=== PATIENT | male | born 1980 | race Caucasian/White ===

== ENCOUNTER 2019-09-21 00:40 | Observation (INO) | payer OTHER ==
[2019-09-21] MEDS ORDERED: BENADRYL 50 MG/ML IV ONE (01:13)
[2019-09-21] MEDS ORDERED: Zofran 4 MG/2 ML VIAL IV ONE (01:13)
[2019-09-21] MEDS ORDERED: MORPHINE SULFATE 4 MG INJ IV ONE (01:13)
[2019-09-21] MEDS ORDERED: Sodium Chloride 0.9% 1000 ML 1,000 ML IV STA ×2 (01:13→02:51)
[2019-09-21] MEDS ORDERED: Merrem 1 GM 1 G in Sodium Chloride 100ML MINI-BAG PLUS 100 ML IV STA (01:15)
--- NOTE | 2019-09-21 01:17 | ERPHSYRPT ---
- History of Present Illness Time Seen by Provider: 09/21/19 01:16 Historian: patient, family Exam Limitations: no limitations Patient Subjective Stated Complaint: pt c/o abd pain Triage Nursing Assessment: pt c/o abd pain mostly on rt side, does not radiate to back. Bowel sounds x4 quad, tender on palpation to rt side. LBM 09/20/19, last ate at 1700 but just a few bites. Pt denies any n,v, indigestion. Physician History: pt had gradual onset RLQ pain through the day with loss of appetite - no vomiting. has RLQ tenderness and rebound . no prior abd surgeries. Activities at Onset: none Quality: sharpness Abdominal Pain Onset Location: RLQ Pain Radiation: no radiation Severity of Pain-Max: moderate Severity of Pain-Current: moderate Modifying Factors: Improves With: movement Associated Symptoms: loss of appetite, nausea Previous symptoms: no prior history Allergies/Adverse Reactions: bee pollen Adverse Reaction (Severe, Verified 09/21/19 01:00) Anaphylactic Reaction Home Medications: No Reportable Medications [No Reported Medications] 09/21/19 [History] Hx Tetanus, Diphtheria Vaccination/Date Given: Yes Hx Influenza Vaccination/Date Given: No Hx Pneumococcal Vaccination/Date Given: No Immunizations Up to Date: Yes Travel Risk - International Travel Have you traveled outside of the country in past 3 weeks: No - Coronavirus Screening Are you exhibiting any of the following symptoms?: No Close contact with a COVID-19 positive Pt in past 14-21 Days: No - Review of Systems Constitutional: No Fever, No Chills Eyes: No Symptoms Ears, Nose, & Throat: No Symptoms Respiratory: No Cough, No Dyspnea Cardiac: No Chest Pain, No Edema, No Syncope Abdominal/Gastrointestinal: Abdominal Pain, Nausea, No Vomiting, No Diarrhea Genitourinary Symptoms: No Dysuria Musculoskeletal: No Back Pain, No Neck Pain Skin: No Rash Neurological: No Dizziness, No Focal Weakness, No Sensory Changes Psychological: No Symptoms Endocrine: No Symptoms All Other Systems: Reviewed and Negative - Past Medical History Pertinent Past Medical History: Yes Neurological History: No Pertinent History ENT History: No Pertinent History Cardiac History: No Pertinent History Respiratory History: No Pertinent History Endocrine Medical History: No Pertinent History Musculoskeletal History: No Pertinent History, Other GI Medical History: No Pertinent History History: No Pertinent History Psycho-Social History: No Pertinent History Male Reproductive Disorders: No Pertinent History - Past Surgical History Past Surgical History: Yes Neuro Surgical History: No Pertinent History Cardiac: No Pertinent History Respiratory: No Pertinent History Gastrointestinal: No Pertinent History Genitourinary: No Pertinent History Musculoskeletal: Orthopedic Surgery Male Surgical History: No Pertinent History Other Surgical History: rt shoulder, multiple ear surgeries, jaw surgery - Social History Smoking Status: Current every day smoker How long have you smoked: 20 yrs Exposure to second hand smoke: Yes Drug Use: none Patient Lives Alone: No - Nursing Vital Signs Nursing Vital Signs: Initial Vital Signs Temperature 97.6 F 09/21/19 00:51 Pulse Rate 92 H 09/21/19 00:51 Respiratory Rate 18 09/21/19 00:51 Blood Pressure 130/85 09/21/19 00:51 O2 Sat by Pulse Oximetry 100 09/21/19 00:51 Pain Scale Pain Intensity 4 - Physical Exam General Appearance: no apparent distress, alert Eye Exam: PERRL/EOMI, eyes nml inspection Ears, Nose, Throat Exam: normal ENT inspection, pharynx normal, moist mucous membranes Neck Exam: normal inspection, non-tender, supple, full range of motion Respiratory Exam: normal breath sounds, lungs clear, No respiratory distress Cardiovascular Exam: regular rate/rhythm, normal heart sounds Gastrointestinal/Abdomen Exam: soft, tenderness (RLQ), rebound, No mass Rectal Exam: deferred Back Exam: normal inspection, normal range of motion, No CVA tenderness, No vertebral tenderness Extremity Exam: normal inspection, normal range of motion, pelvis stable Neurologic Exam: alert, oriented x 3, cooperative, normal mood/affect, nml cerebellar function, sensation nml, No motor deficits Skin Exam: normal color, warm, dry SpO2: 100 - Course Nursing assessment & vital signs reviewed: Yes EKG Interpreted by Me: Sinus Rhythm, NORMAL AXIS, NORMAL INTERVALS, NORMAL QRS - CT Exams Abdomen/Pelvis CT Interpretation: Tele-radiologist Report, appendicitis, Other (hiatal hernia incidental) Ordered Tests: Active Orders 24 hr Category Date Time Status EKG-ER Only STAT Care 09/21/19 01:13 Active IV Insertion STAT Care 09/21/19 01:13 Active ABDOMEN AND PELVIS W/0 CONTRAS [CT] Stat Exams 09/21/19 01:13 Taken CBC W DIFF Stat Lab 09/21/19 01:28 Completed CMP Stat Lab 09/21/19 01:28 Completed LIPASE Stat Lab 09/21/19 01:28 Completed Lactic Acid Stat Lab 09/21/19 01:13 Completed UA W/RFX UR CULTURE Stat Lab 09/21/19 01:13 Completed Medication Summary Generic Name Dose Route Start Last Admin Trade Name Andrew PRN Reason Stop Dose Admin Sodium Chloride 1,000 mls @ 999 mls/hr 09/21/19 02:51 09/21/19 02:54 Sodium Chloride 0.9% 1000 Ml IV 09/21/19 03:51 999 mls/hr .Q1H1M STA Administration Discontinued Medications Generic Name Dose Route Start Last Admin Trade Name Andrew PRN Reason Stop Dose Admin Diphenhydramine HCl 25 mg 09/21/19 01:13 09/21/19 01:52 Benadryl 50 Mg/Ml IV 09/21/19 01:14 25 mg STAT ONE Administration Diphenhydramine HCl Confirm 09/21/19 01:35 Benadryl 50 Mg/Ml Administered 09/21/19 01:36 Dose 50 mg .ROUTE .STK-MED ONE Sodium Chloride 1,000 mls @ 999 mls/hr 09/21/19 01:13 09/21/19 01:47 Sodium Chloride 0.9% 1000 Ml IV 09/21/19 02:13 999 mls/hr .Q1H1M STA Administration Meropenem 1 g/ Sodium Chloride 100 mls @ 200 mls/hr 09/21/19 01:15 09/21/19 01:47 IV 09/21/19 01:44 200 mls/hr STAT STA 200 mls/hr Administration Sodium Chloride Confirm 09/21/19 01:35 Sodium Chloride 100ml Mini-Bag Plus Administered 09/21/19 01:36 Dose 100 mls @ ud IV .STK-MED ONE Sodium Chloride Confirm 09/21/19 01:36 Sodium Chloride 0.9% 1000 Ml Administered 09/21/19 01:37 Dose 1,000 mls @ ud .ROUTE .STK-MED ONE Sodium Chloride Confirm 09/21/19 02:52 Sodium Chloride 0.9% 1000 Ml Administered 09/21/19 02:53 Dose 1,000 mls @ ud .ROUTE .STK-MED ONE Meropenem Confirm 09/21/19 01:35 Merrem 1 Gm Administered 09/21/19 01:36 Dose 1 g IV .STK-MED ONE Morphine Sulfate 4 mg 09/21/19 01:13 09/21/19 01:51 Morphine Sulfate 4 Mg Inj IV 09/21/19 01:14 4 mg STAT ONE Administration Morphine Sulfate Confirm 09/21/19 01:35 Morphine Sulfate 4 Mg Inj Administered 09/21/19 01:36 Dose 4 mg .ROUTE .STK-MED ONE Ondansetron HCl 4 mg 09/21/19 01:13 09/21/19 01:52 Zofran 4 Mg/2 Ml Vial IV 09/21/19 01:14 4 mg STAT ONE Administration Ondansetron HCl Confirm 09/21/19 01:34 Zofran 4 Mg/2 Ml Vial Administered 09/21/19 01:35 Dose 4 mg .ROUTE .STK-MED ONE Lab/Rad Data: Laboratory Result Diagrams 09/21/19 01:28 09/21/19 01:28 Laboratory Results 09/21/19 09/21/19 09/21/19 Range/Units 01:28 01:28 01:13 WBC 10.9 H (4.0-10.5) K/mm3 RBC 4.69 (4.1-5.6) M/mm3 Hgb 14.8 (12.5-18.0) gm/dl Hct 42.4 (42-50) % MCV 90.4 (78-100) fl MCH 31.6 (26-32) pg MCHC 34.9 (32-36) g/dl RDW 12.6 (11.5-14.0) % Plt Count 250 (150-450) K/mm3 MPV 9.5 (7.5-11.0) fl Gran % 70.5 H (36.0-66.0) % Eos # (Auto) 0.25 (0-0.5) Absolute Lymphs (auto) 2.27 (1.0-4.6) Absolute Monos (auto) 0.69 (0.0-1.3) Lymphocytes % 20.8 L (24.0-44.0) % Monocytes % 6.3 (0.0-12.0) % Eosinophils % 2.3 (0.00-5.0) % Basophils % 0.1 (0.0-0.4) % Absolute Granulocytes 7.67 H (1.4-6.9) Basophils # 0.01 (0-0.4) Sodium 136 L (137-145) mmol/L Potassium 4.4 (3.5-5.1) mmol/L Chloride 105 (98-107) mmol/L Carbon Dioxide 25 (22-30) mmol/L Anion Gap 9.7 (5-15) MEQ/L BUN 14 (9-20) mg/dL Creatinine 0.98 (0.66-1.25) mg/dL Estimated GFR > 60.0 ML/MIN Glucose 111 H (74-106) mg/dL Lactic Acid (0.4-2.0) Calcium 10.0 (8.4-10.2) mg/dL Total Bilirubin 0.60 (0.2-1.3) mg/dL AST 31 (17-59) U/L ALT 38 (0-50) U/L Alkaline Phosphatase 89 (38-126) U/L Serum Total Protein 6.9 (6.3-8.2) g/dL Albumin 4.0 (3.5-5.0) g/dL Lipase 44 (23-300) U/L Urine Color YELLOW (YELLOW) Urine Appearance CLEAR (CLEAR) Urine pH 5.0 (5-6) Ur Specific [place] 1.024 (1.005-1.025) Urine Protein NEGATIVE (Negative) Urine Ketones NEGATIVE (NEGATIVE) Urine Blood NEGATIVE (0-5) Jomar/ul Urine Nitrite NEGATIVE (NEGATIVE) Urine Bilirubin NEGATIVE (NEGATIVE) Urine Urobilinogen NEGATIVE (0-1) mg/dL Ur Leukocyte Esterase NEGATIVE (NEGATIVE) Urine WBC (Auto) NONE (0-5) /HPF Urine RBC (Auto) NONE (0-2) /HPF U Epithel Cells (Auto) NONE (FEW) /HPF Urine Bacteria (Auto) NONE (NEGATIVE) /HPF Urine Mucus (Auto) SLIGHT (NEGATIVE) /HPF Urine Culture Reflexed NO (NO) Urine Glucose NEGATIVE (NEGATIVE) mg/dL 09/21/19 Range/Units 01:13 WBC (4.0-10.5) K/mm3 RBC (4.1-5.6) M/mm3 Hgb (12.5-18.0) gm/dl Hct (42-50) % MCV (78-100) fl MCH (26-32) pg MCHC (32-36) g/dl RDW (11.5-14.0) % Plt Count (150-450) K/mm3 MPV (7.5-11.0) fl Gran % (36.0-66.0) % Eos # (Auto) (0-0.5) Absolute Lymphs (auto) (1.0-4.6) Absolute Monos (auto) (0.0-1.3) Lymphocytes % (24.0-44.0) % Monocytes % (0.0-12.0) % Eosinophils % (0.00-5.0) % Basophils % (0.0-0.4) % Absolute Granulocytes (1.4-6.9) Basophils # (0-0.4) Sodium (137-145) mmol/L Potassium (3.5-5.1) mmol/L Chloride (98-107) mmol/L Carbon Dioxide (22-30) mmol/L Anion Gap (5-15) MEQ/L BUN (9-20) mg/dL Creatinine (0.66-1.25) mg/dL Estimated GFR ML/MIN Glucose (74-106) mg/dL Lactic Acid 1.2 (0.4-2.0) Calcium (8.4-10.2) mg/dL Total Bilirubin (0.2-1.3) mg/dL AST (17-59) U/L ALT (0-50) U/L Alkaline Phosphatase (38-126) U/L Serum Total Protein (6.3-8.2) g/dL Albumin (3.5-5.0) g/dL Lipase (23-300) U/L Urine Color (YELLOW) Urine Appearance (CLEAR) Urine pH (5-6) Ur Specific [place] (1.005-1.025) Urine Protein (Negative) Urine Ketones (NEGATIVE) Urine Blood (0-5) Jomar/ul Urine Nitrite (NEGATIVE) Urine Bilirubin (NEGATIVE) Urine Urobilinogen (0-1) mg/dL Ur Leukocyte Esterase (NEGATIVE) Urine WBC (Auto) (0-5) /HPF Urine RBC (Auto) (0-2) /HPF U Epithel Cells (Auto) (FEW) /HPF Urine Bacteria (Auto) (NEGATIVE) /HPF Urine Mucus (Auto) (NEGATIVE) /HPF Urine Culture Reflexed (NO) Urine Glucose (NEGATIVE) mg/dL - Progress Progress: unchanged, re-examined Progress Note: 09/21/19 03:[address] Jose Armando Moyer automation and controls manager and will admit for Appe in am and continue AB and NPO and IVF. Discussed with Dr.: Other (Dr. Jose Armando Moyer) Will see patient in: hospital (full admit) Counseled pt/family regarding: lab results, diagnosis, need for follow-up, rad results - Departure Departure Disposition: In-patient Admission Clinical Impression: Appendicitis Condition: Good Critical Care Time: No Referrals: HOSPITAL,'S [Primary Care Provider] -
[2019-09-21 01:30] LABS: Absolute Neutrophil Ct (ANC) 7.67 (1.4-6.9); BASOPHIL % 0.1 % (0.0-0.4); Basophil (Absolute #) 0.01 (0-0.4); Eosinophil % 2.3 % (0.00-5.0); Eosinophil (Absolute #) 0.25 (0-0.5); Hematocrit 42.4 % (42-50); Hemoglobin 14.8 gm/dl (12.5-18.0); Lymphocyte (Absolute #) 2.27 (1.0-4.6); Lymphocytes % 20.8 % (24.0-44.0); Mean Cell Volume 90.4 fl (78-100); Mean Corpuscular Hemoglobin 31.6 pg (26-32); Mean Corpuscular Hgb Concent. 34.9 g/dl (32-36); Mean Platelet Volume 9.5 fl (7.5-11.0); Monocyte (Absolute #) 0.69 (0.0-1.3); Monocytes % 6.3 % (0.0-12.0); Neutrophil % 70.5 % (36.0-66.0); Platelet Count 250 K/mm3 (150-450); Red Blood Count 4.69 M/mm3 (4.1-5.6); Red Cell Distribution Width 12.6 % (11.5-14.0); White Blood Count 10.9 K/mm3 (4.0-10.5)
[2019-09-21] MEDS ORDERED: Zofran 4 MG/2 ML VIAL ONE (01:34)
[2019-09-21] MEDS ORDERED: MORPHINE SULFATE 4 MG INJ ONE ×2 (01:35→03:56)
[2019-09-21] MEDS ORDERED: BENADRYL 50 MG/ML ONE (01:35)
[2019-09-21] MEDS ORDERED: Merrem 1 GM IV ONE (01:35)
[2019-09-21] MEDS ORDERED: Sodium Chloride 100ML MINI-BAG PLUS 100 ML IV ONE (01:35)
[2019-09-21] MEDS ORDERED: Sodium Chloride 0.9% 1000 ML 1,000 ML ONE ×2 (01:36→02:52)
[2019-09-21 01:44] LABS: ALKALINE PHOSPHATASE 89 U/L (38-126); ANION GAP 9.7 MEQ/L (5-15); BLOOD UREA NITROGEN 14 mg/dL (9-20); CHLORIDE 105 mmol/L (98-107); Carbon Dioxide 25 mmol/L (22-30); Creatinine 1 0.98 mg/dL (0.66-1.25); Glucose 111 mg/dL (74-106); LIPASE 44 U/L (23-300); Potassium 4.4 mmol/L (3.5-5.1); SGOT/AST 31 U/L (17-59); SGPT/ALT 38 U/L (0-50); SODIUM 136 mmol/L (137-145); Total Protein 6.9 g/dL (6.3-8.2)
[2019-09-21 02:04] LABS: Appearance CLEAR (CLEAR); Bilirubin NEGATIVE (NEGATIVE); Blood NEGATIVE Ery/ul (0-5); Glucose NEGATIVE (NEGATIVE); Ketones NEGATIVE (NEGATIVE); Leukocyte Esterase NEGATIVE (NEGATIVE); Mucus SLIGHT /HPF (NEGATIVE); Nitrite NEGATIVE (NEGATIVE); Protein,Urine Dip NEGATIVE (Negative); Specific Gravity 1.024 (1.005-1.025); Urobilinogen NEGATIVE mg/dL (0-1)
[2019-09-21 03:25] LABS: INR 1.19 (0.8-3.0); PROTIME 13.5 SECONDS (8.83-12.87)
[2019-09-21 03:28] LABS: PTT 32.5 SECONDS (24.1-36.1)
[2019-09-21] MEDS ORDERED: HUMULIN R SQ PRN (03:49)
[2019-09-21] MEDS ORDERED: DILAUDID 2 MG INJECTION IV PRN (03:49)
[2019-09-21] MEDS ORDERED: MORPHINE SULFATE 4 MG INJ IV PRN ×2 (03:49→03:59)
[2019-09-21] MEDS ORDERED: Zofran 4 MG/2 ML VIAL IV PRN (03:49)
[2019-09-21] MEDS ORDERED: Sodium Chloride 0.9% 1000 ML 1,000 ML IV SCH (03:49)
[2019-09-21 04:36] LABS: ABO TYPING O; Antibody Screen NEGATIVE (NEGATIVE); RH TYPING POSITIVE
[2019-09-21] MEDS ORDERED: Merrem 1 GM 1 G in Sodium Chloride 100ML MINI-BAG PLUS 100 ML IV SCH (06:00)
[2019-09-21] MEDS ORDERED: Lactated Ringers 1,000 ML IV SCH (06:30)
--- NOTE | 2019-09-21 06:54 | XRAY ---
Indication: Right lower quadrant pain and elevated WBC. Multiple contiguous axial images obtained through the abdomen and pelvis without contrast as ordered. Comparison: None Lung bases demonstrates minimal bibasilar dependent atelectasis. Heart is not enlarged. Noncontrasted stomach and bowel loops appear nonobstructed. Appendix mildly prominent up to 9 mm diameter with minimal periappendiceal stranding favoring acute appendicitis. Tiny 2 mm distal appendicolith and 6 mm base appendicolith. No free fluid/air. Splenomegaly measuring 13.1 cm. Remaining liver, gallbladder, pancreas, spleen, adrenal glands, kidneys, ureters, bladder, and aorta appear unremarkable for noncontrast exam. Osseous structures intact. Impression: 1. CT findings favoring acute appendicitis with appendicoliths. 2. Incidental splenomegaly. Comment: Preliminary interpretation was made by [facility]. No critical discrepancy.
[2019-09-21] MEDS ORDERED: MEFOXIN 2 GM PREMIX** 2 GM/50 ML ML IV SCH (08:00)
[2019-09-21] MEDS ORDERED: Zemuron 100 MG/10 ML ONE (08:05)
[2019-09-21] MEDS ORDERED: SUBLIMAZE 250 MCG/5 ML ONE (08:05)
[2019-09-21] MEDS ORDERED: DIPRIVAN 200 MG/20 ML IV ONE (08:05)
[2019-09-21] MEDS ORDERED: Quelicin Fliptop 200 MG/10 ML ONE (08:05)
[2019-09-21] MEDS ORDERED: Versed 2 MG/2 ML Injection ONE (08:05)
[2019-09-21] MEDS ORDERED: Sensorcaine 0.25% 10 ML ONE ×2 (08:47→09:53)
[2019-09-21] MEDS ORDERED: PHENYLEPHRINE HCL ONE (09:00)
[2019-09-21] MEDS ORDERED: BRIDION 200MG/2ML IV ONE (09:15)
[2019-09-21] MEDS ORDERED: Pepcid 20 MG VIAL IV SCH (10:00)
[2019-09-21] MEDS ORDERED: TYLENOL 325 MG PO PRN (11:01)
[2019-09-21] MEDS ORDERED: Zofran 4 MG/2 ML VIAL IVIM PRN (11:15)
[2019-09-21] MEDS: Sodium Chloride 0.9% 1000 ML 1,000 ML IV SCH ×2 (11:15→11:31)
[2019-09-21] MEDS: NORCO 5/325 MG PO PRN ×2 (12:42→16:58)
[2019-09-21 12:49] LABS: Appearance CLEAR (CLEAR); Bilirubin NEGATIVE (NEGATIVE); Blood NEGATIVE Ery/ul (0-5); Glucose NEGATIVE (NEGATIVE); Ketones NEGATIVE (NEGATIVE); Leukocyte Esterase NEGATIVE (NEGATIVE); Mucus SLIGHT /HPF (NEGATIVE); Nitrite NEGATIVE (NEGATIVE); Protein,Urine Dip NEGATIVE (Negative); Specific Gravity 1.015 (1.005-1.025); Urobilinogen NEGATIVE mg/dL (0-1)
[2019-09-21 12:56] LABS: Bacteria NONE SEEN /HPF (NEGATIVE)
[2019-09-21 17:19] VITALS: BP 111/70; PULSE 73; O2SAT 94
--- NOTE | 2019-09-22 08:34 | HP ---
CHIEF COMPLAINT: Abdominal pain. HISTORY OF PRESENT ILLNESS: The patient is a 39 year old male who presents to the emergency department with around 12 hours of abdominal pain. It is sharp, severe, worse in the right lower quadrant. The emergency department evaluation showed mild leukocytosis, normal vitals, tenderness in the right lower quadrant and CT scan confirming acute appendicitis with appendicolith. PAST MEDICAL HISTORY: No chronic medical conditions. PAST SURGICAL HISTORY: Multiple right shoulder procedures, multiple ear and maxillofacial surgery. MEDICATIONS: None. ALLERGIES: NKDA. BEE POLLEN. SOCIAL HISTORY: Active smoker, not a daily drinker. FAMILY HISTORY: No inflammatory bowel disease or abdominal cancer. PHYSICAL EXAMINATION: HEENT: Sclera nonicteric. NECK: Symmetric. No mass. LUNGS: Nonlabored respirations. HEART: Regular rate and rhythm. ABDOMEN: Nondistended, tender in the right lower quadrant with localized rebound and guarding. EXTREMITIES: No edema. Moving all extremities. NEUROLOGIC: Appropriate mood and affect. GCS with healing. LAB DATA AND TESTS: White count mildly elevated. CBC and BMP reviewed. CT scan showed appendix inflammation with appendicolith. ASSESSMENT AND PLAN: The patient is a 39 year old male with acute appendicitis. He had been admitted to the hospital, got IV antibiotic, IV fluid, pain control and now going to operating room for appendectomy.
--- NOTE | 2019-09-24 08:59 | OP ---
NOTE: This dictation is being dictated in retrospect. Apparently there was a problem with my initial attempt to dictate. SURGERY DATE/TIME: 09/21/2019 0868 PREOPERATIVE DIAGNOSIS: Acute appendicitis. POSTOPERATIVE DIAGNOSES: Acute appendicitis, nonperforated. PROCEDURE: Laparoscopic appendectomy. SURGEON: Jose Armando Moyer M.D. ANESTHESIA: General. ESTIMATED BLOOD LOSS: Minimal. CONDITION: Stable. COMPLICATIONS: None. SPECIMEN: Appendix. HISTORY: The patient is a 39 year-old male with acute right lower quadrant abdominal pain. The emergency department work up revealed acute appendicitis nonperforated. The risks of infection, bleeding, hernia, injury to nearby structures were discussed with the patient and he elected to proceed. FINDINGS: Nonperforated appendicitis. DESCRIPTION OF PROCEDURE: The patient was brought to the operating room. General anesthesia was induced. He was placed supine with the left arm tucked, right arm out. SCD's were applied. He did receive preoperative antibiotic. He was routinely prepped and draped. Time out was performed. Veress needle was inserted in the left upper quadrant. Pneumoperitoneum was established. A 12 mm OPTIVIEW trocar was placed infraumbilically. Two additional 5 mm trocars were placed suprapubically and in the left lower quadrant. Marcaine was injected at all of the port sites. Abdomen was surveyed. There was obvious appendicitis without perforation. The mesoappendix was taken with LigaSure. The base of the appendix was taken with YOUSIF stapler. The specimen was placed in a bag and removed through the umbilical trocar. Trocar was reinserted. The abdomen was surveyed and was satisfactory. There was good hemostasis. Staple line was healthy. The umbilical trocar was closed with a 0 Vicryl suture passer. The left lower quadrant port was removed under direct visualization. The suprapubic port was used for desufflation and then removed. All counts were correct. The patient tolerated the procedure well and returned to recovery in stable condition.
== END 2019-09-21 17:20 | disposition home or self-care (01) ==
LOC: ED 00:40 → MED SURG 03:44 → INTOOBSV 03:44
PROVIDERS: ADMIT Surgery; ATTEND Surgery
DX: K35.80 Unspecified acute appendicitis (principal); D72.829 Elevated white blood cell count, unspecified
CPT/HCPCS: 36000; 36415; 44970; 74176; 80053; 81001; 83605; 83690; 85025; 85610; 85730; 86850; 86900; 86901; 87086; 93005; 94762; 96360; 96365; 96374; 96375; 99285; G0378; 99140; J0330; J0694; J1200; J2250; J2270; J2370; J2405; J2704; J3010; A9270-GY